=== PATIENT | female | born 1990 | race Caucasian/White ===

== ENCOUNTER 2021-08-07 23:03 | Emergency (ER) | payer MEDICAID ==
[~2021-08-07] VITALS: Ht 154.9 cm; Wt 76.9 kg
[2021-08-08 00:31] VITALS: BP 104/55
[2021-08-08] MEDS ORDERED: CLIN-194 MT (09:28)
== END 2021-08-08 01:48 | disposition left against medical advice (07) ==
LOC: ER 23:03
DX: Z53.21 Procedure and treatment not carried out due to patient leaving prior to being seen by health care provider (principal)

== ENCOUNTER 2021-08-08 08:42 | Emergency (ER) | payer MEDICAID ==
[~2021-08-08] VITALS: Ht 157.5 cm; Wt 101.0 kg
[2021-08-08] MEDS ORDERED: CLIN-194 MT (09:28)
[2021-08-08 10:08] VITALS: BP 118/76
== END 2021-08-08 10:08 | disposition home or self-care (01) ==
LOC: ER 09:02
DX: H66.92 Otitis media, unspecified, left ear (principal); J02.9 Acute pharyngitis, unspecified; Z98.890 Other specified postprocedural states; Z88.0 Allergy status to penicillin
CPT/HCPCS: 99283

== ENCOUNTER 2023-07-27 00:45 | Emergency (ER) | payer MEDICAID ==
[~2023-07-27] VITALS: Ht 149.9 cm; Wt 64.0 kg
[~2023-07-27 00:45] MED LIST: CLIN-194 MT
[2023-07-27] MEDS: SODIUM CHLORIDE 0.9% 1,000 ML IV ONE (01:47)
[2023-07-27] MEDS: ONDANSETRON HCL 4MG/2ML INJ IV ONE (01:47)
[2023-07-27] MEDS: MORPHINE SULFATE 4 MG/ML INJ (FOR IV/IM USE) IV ONE (01:47)
[2023-07-27] MEDS: ACETAMINOPHEN 1000MG/100ML 100 ML IV ONE (01:57)
[2023-07-27 02:03] LABS: HCG SCREEN NEGATIVE
[2023-07-27 02:48] VITALS: O2SAT 98
[2023-07-27] MEDS: PROPOFOL 200MG/20ML VIAL IV ONE (03:16)
[2023-07-27] MEDS ORDERED: ACET-2708 MT (04:45)
[2023-07-27] MEDS ORDERED: DIPHENHYDRAMINE 25MG CAPSULE PO ONE (05:45)
[2023-07-27 08:06] VITALS: BP 107/64; PULSE 72; RESP 16; TEMP 97.7
== END 2023-07-27 08:08 | disposition home or self-care (01) ==
LOC: ER 00:54
DX: S43.004A Unspecified dislocation of right shoulder joint, initial encounter (principal); Z88.0 Allergy status to penicillin; X58.XXXA Exposure to other specified factors, initial encounter; Y93.84 Activity, sleeping; Y92.89 Other specified places as the place of occurrence of the external cause; Y99.8 Other external cause status
CPT/HCPCS: 84703; 73030; 23650; 96365; 96375; 99152; 99285; J2405; J2704; J2270; J7030; Z7610; A4565; J0131